=== PATIENT | female | born 1990 | race African-American/Black ===

== ENCOUNTER 2016-08-06 04:40 | Emergency (ER) | payer SELFPAY ==
[~2016-08-06] VITALS: Ht 154.9 cm; Wt 72.6 kg
[~2016-08-06 04:40] MED LIST: BENZ100C PO; CEPH-264 PO; NAPR250T2 PO; PRED20TA PO
[2016-08-06 05:00] VITALS: BP 135/84
--- NOTE | 2016-08-06 05:08 | PHYS DOC ---
Past Medical History Past Medical History: No Pertinent History Past Surgical History: No Surgical History Alcohol Use: None Drug Use: None Adult General Chief Complaint Chief Complaint: HEADACHE HPI HPI Patient is a 25 year old female who presents with left sided headache above and below eye, constant, gradually worsening, pressure/achy; associated with rhinorrhea, nasal congestion, and sneezing. States he has seasonal allergies and is currently taking an antihistamine without complete relief in symptoms. She denies fever or chills, vision changes, eye pain, ear pain, sore throat, cough, nausea or vomiting, dizziness, numbness, tingling, weakness. Review of Systems Review of Systems Constitutional: Denies fever or chills [] Eyes: Denies change in visual acuity, redness, or eye pain [] HENT: Denies sore throat [] Respiratory: Denies cough or shortness of breath [] Cardiovascular: No additional information not addressed in HPI [] GI: Denies abdominal pain, nausea, vomiting, bloody stools or diarrhea [] : Denies dysuria or hematuria [] Musculoskeletal: Denies back pain or joint pain [] Integument: Denies rash or skin lesions [] Neurologic: Denies focal weakness or sensory changes [] Endocrine: Denies polyuria or polydipsia [] Allergies Allergies Allergies Coded Allergies Type Severity Reaction Last Updated Verified hydrocodone Allergy Intermediate 04/14/14 No Physical Exam Physical Exam Constitutional: Well developed, well nourished, no acute distress, non-toxic appearance. [] HENT: Normocephalic, atraumatic, bilateral TMs normal, oropharynx moist, no oral exudates, nose normal. Has left frontal and maxillary sinus [] Eyes: PERRLA, EOMI, conjunctiva normal, no discharge. [] Neck: Normal range of motion, no tenderness, supple. [] Cardiovascular:Heart rate regular rhythm [] Lungs & Thorax: Bilateral breath sounds clear to auscultation [] Abdomen: Bowel sounds normal, soft, no tenderness. [] Skin: Warm, dry, no erythema, no rash. [] Back: Normal range of motion. [] Extremities: No tenderness, ROM intact. [] Neurologic: Alert and oriented X 3, normal motor function, normal sensory function, no focal deficits noted, cranial nerves II through XII intact. [] Psychologic: Affect normal, judgement normal, mood normal. [] Course & Med Decision Making Course & Med Decision Making Discussed symptomatic management. Return precautions given. She understands and agrees with plan. Dragon Disclaimer Mahad Disclaimer This electronic medical record was generated, in whole or in part, using a voice recognition dictation system. Departure Departure Impression: Primary Impression: Sinus headache Disposition: HOME, SELF-CARE Condition: STABLE Referrals: NO PCP (PCP) Patient Instructions: Sinus Headache, [id number] Additional Instructions: Use Flonase to help with nasal congestion and sinus headache. Use nasal saline rinses (such as Krysten pot) to help with congestion well. Take Tylenol or ibuprofen as needed for pain. Follow-up with your primary care doctor within one week. Return for any concerns. Mary AVENDAÑO MD August 06, 2016 05:08
== END 2016-08-06 05:12 | disposition home or self-care (01) ==
LOC: ER 04:40
DX: R51 Headache (principal); J34.89 Other specified disorders of nose and nasal sinuses; R09.81 Nasal congestion; R06.7 Sneezing; Z88.5 Allergy status to narcotic agent
CPT/HCPCS: 99281

== ENCOUNTER 2017-03-03 17:32 | Emergency (ER) | payer OTHER ==
[~2017-03-03] VITALS: Ht 154.9 cm; Wt 77.1 kg
[~2017-03-03 17:32] MED LIST changes: -NAPR250T2 PO; +NAPR250T6 PO
[2017-03-03] MEDS ORDERED: FLUT9.9S NS (18:25)
[2017-03-03] MEDS ORDERED: AMOX1TAB11 PO (18:25)
--- NOTE | 2017-03-03 18:25 | PHYS DOC ---
Past Medical History Past Medical History: No Pertinent History Past Surgical History: No Surgical History Alcohol Use: None Drug Use: None Adult General Chief Complaint Chief Complaint: EARACHE/EAR PAIN [facility] HPI Patient is a 26 year old E male presents to the emergency department with a one -month history of cough with bilateral ear discomfort. States she's really taking foods and fluids. She has only vomited after coughing. No fever. Review of Systems Review of Systems Constitutional: Denies fever or chills [] Eyes: Denies change in visual acuity, redness, or eye pain [] HENT: Nasal congestion, sore throat, sinus pain Respiratory: Cough without shortness of breath Cardiovascular: No additional information not addressed in HPI [] GI: Denies abdominal pain, nausea, vomiting, bloody stools or diarrhea [] : Denies dysuria or hematuria [] Musculoskeletal: Denies back pain or joint pain [] Integument: Denies rash or skin lesions [] Neurologic: Denies headache, focal weakness or sensory changes [] Endocrine: Denies polyuria or polydipsia [] All other systems were reviewed and found to be within normal limits, except as documented in this note. Allergies Allergies Allergies Coded Allergies Type Severity Reaction Last Updated Verified hydrocodone Allergy Intermediate 04/14/14 No Physical Exam Physical Exam Constitutional: Well developed, well nourished, no acute distress, non-toxic appearance. [] HENT: Normocephalic, atraumatic, bilateral tympanic membranes pearly valdez with effusion, clear fluid. Anterior turbinates swollen, rhinorrhea, maxillary sinus tenderness, posterior pharynx injected Eyes: PERRLA, EOMI, conjunctiva normal, no discharge. [] Neck: Normal range of motion, no tenderness, supple, no stridor. [] Cardiovascular:Heart rate regular rhythm, no murmur [] Lungs & Thorax: Bilateral breath sounds clear to auscultation [] Abdomen: Bowel sounds normal, soft, no tenderness, no masses, no pulsatile masses. [] Skin: Warm, dry, no erythema, no rash. [] Back: No tenderness, no CVA tenderness. [] Extremities: No tenderness, no cyanosis, no clubbing, ROM intact, no edema. [] Neurologic: Alert and oriented X 3, normal motor function, normal sensory function, no focal deficits noted. [] Psychologic: Affect normal, judgement normal, mood normal. [] EKG EKG [] Radiology/Procedures Radiology/Procedures [] Course & Med Decision Making Course & Med Decision Making Pertinent Labs and Imaging studies reviewed. (See chart for details) [] Dragon Disclaimer Dragon Disclaimer This electronic medical record was generated, in whole or in part, using a voice recognition dictation system. Departure Departure Impression: Primary Impression: Sinusitis Disposition: HOME, SELF-CARE Condition: STABLE Referrals: NO PCP (PCP) [facility] Patient Instructions: Sinusitis Scripts Fluticasone Propionate (Flonase Allergy Relief) 9.9 Ml [place].susp 2 SPRAYS NS DAILY for 10 Days, #1 BOTTLE Prov: JULIANNA HAMILTON APRN 03/03/17 Amoxicillin/Potassium Clav (AMOX TR-K CLV 875-125 MG TAB) 1 Each Tablet 1 TAB PO BID, #20 TAB Prov: JULIANNA HAMILTON APRN 03/03/17 Problem Qualifiers Primary Impression: Sinusitis Sinusitis location: maxillary Chronicity: acute Recurrence: non-recurrent Qualified Codes: J01.00 - Acute maxillary sinusitis, unspecified JULIANNA HAMILTON APRN Mar 03, 2017 18:25
[2017-03-03 18:42] VITALS: BP 128/79
== END 2017-03-03 18:49 | disposition home or self-care (01) ==
LOC: ER 17:32
DX: J01.00 Acute maxillary sinusitis, unspecified (principal); Z88.5 Allergy status to narcotic agent
CPT/HCPCS: 99283

== ENCOUNTER 2017-03-13 19:25 | Emergency (ER) | payer OTHER ==
[~2017-03-13] VITALS: Ht 157.5 cm; Wt 77.1 kg
[~2017-03-13 19:25] MED LIST changes: +AMOX1TAB11 PO; +FLUT9.9S NS
[2017-03-13 19:36] VITALS: BP 124/89
[2017-03-13] MEDS ORDERED: METH4TAB2 PO (19:50)
[2017-03-13] MEDS ORDERED: CARB15DR58 OT (19:50)
--- NOTE | 2017-03-13 19:52 | PHYS DOC ---
Past Medical History Past Medical History: No Pertinent History Past Surgical History: No Surgical History Alcohol Use: None Drug Use: None Adult General Chief Complaint Chief Complaint: EARACHE/EAR PAIN HPI HPI Patient is a 26 year old female with a history of cerumen impaction presents the ED complaining of ear pain 3 days. Patient states she is currently being treated with Augmentin for a sinus infection from her last visit. Patient is complaining of ear pain and feeling of fullness. Describes the pain as sharp. Rates the pain as 4 out of 10. States her congestion and cough have improved. Denies body aches, sore throat, chest pain, shortness of breath, fever, nausea/ vomiting, abdominal pain. Review of Systems Review of Systems Constitutional: Denies fever or chills [] Eyes: Denies change in visual acuity, redness, or eye pain [] HENT: Complains of nasal congestion and ear pain. Denies sore throat [] Respiratory: Denies shortness of breath [] Cardiovascular: No additional information not addressed in HPI [] GI: Denies abdominal pain, nausea, vomiting, bloody stools or diarrhea [] : Denies dysuria or hematuria [] Musculoskeletal: Denies back pain or joint pain [] Integument: Denies rash or skin lesions [] Neurologic: Denies headache, focal weakness or sensory changes [] Endocrine: Denies polyuria or polydipsia [] All other systems were reviewed and found to be within normal limits, except as documented in this note. Allergies Allergies Allergies Coded Allergies Type Severity Reaction Last Updated Verified hydrocodone Allergy Intermediate 04/14/14 No Physical Exam Physical Exam Constitutional: Well developed, well nourished, no acute distress, non-toxic appearance. [] HENT: Normocephalic, atraumatic, bilateral external ears normal, BILATERAL CERUMEN IMPACTION. oropharynx moist, no oral exudates, nose normal. [] Eyes: PERRLA, EOMI, conjunctiva normal, no discharge. [] Neck: Normal range of motion, no tenderness, supple, no stridor. [] Cardiovascular:Heart rate regular rhythm, no murmur [] Lungs & Thorax: Bilateral breath sounds clear to auscultation [] Skin: Warm, dry, no erythema, no rash. [] Neurologic: Alert and oriented X 3, normal motor function, normal sensory function, no focal deficits noted. [] Psychologic: Affect normal, judgement normal, mood normal. [] Current Patient Data Vital Signs Vital Signs Date Time Temp Pulse Resp B/P (MAP) Pulse Ox O2 Delivery O2 Flow Rate FiO2 03/13/17 19:36 98.4 109 20 97 Room Air 98.4 EKG EKG [] Radiology/Procedures Radiology/Procedures [] Course & Med Decision Making Course & Med Decision Making Pertinent Labs and Imaging studies reviewed. (See chart for details) []Will treat with Debrox and Medrol Dosepak outpatient. Discussed over-the- counter symptomatic treatment. Discussed follow-up with ENT. Provided contact information/education. Discussed reasons to return to the ED. Patient understands and agrees with plan. Dragon Disclaimer Dragon Disclaimer This electronic medical record was generated, in whole or in part, using a voice recognition dictation system. Departure Departure Impression: Primary Impression: Cerumen impaction Additional Impression: Viral URI Disposition: HOME, SELF-CARE Condition: IMPROVED Referrals: NO PCP (PCP) GUILLERMINA DAN MD Patient Instructions: Cerumen Impaction, Upper Respiratory Infection, Adult Scripts Methylprednisolone (MEDROL) 4 Mg Tab.ds.pk 1 PKG PO UD, #1 PKG Prov: LAVERNE VAZQUEZ 03/13/17 Carbamide Peroxide (CARBAMIDE PEROXIDE) 15 Ml Drops 15 ML OT BID for 4 Days, #5 DROP 5-10 DROPS IN EAR BID Prov: LAVRENE VAZQUEZ 03/13/17 Problem Qualifiers LAVERNE VAZQUEZ Mar 13, 2017 19:52
== END 2017-03-13 20:00 | disposition home or self-care (01) ==
LOC: ER 19:25
DX: H61.23 Impacted cerumen, bilateral (principal); J06.9 Acute upper respiratory infection, unspecified; B97.89 Other viral agents as the cause of diseases classified elsewhere; Z88.5 Allergy status to narcotic agent
CPT/HCPCS: 99283

== ENCOUNTER 2017-10-09 08:13 | Emergency (ER) | payer SELFPAY, OTHER ==
[2017-10-09 09:07] LABS: BILIRUBIN,URINE NEGATIVE (NEG); CLARITY,URINE CLOUDY; COLOR,URINE YELLOW; GLUCOSE,URINE NEGATIVE (NEG); NITRITE,URINE NEGATIVE (NEG); PROTEIN,URINE NEGATIVE (NEG-TRACE); UROBILINOGEN,URINE 0.2 mg/dL (0.2 mg/dL)
[2017-10-09 09:13] LABS: AMORPHOUS SEDIMENT,UR PRESENT /HPF; BACTERIA,URINE 0 /HPF (0-FEW); RBC,URINE 0 /HPF (0-2); WBC,URINE 0 /HPF (0-4)
[2017-10-10 16:17] LABS: CHLAMYDIA PROBE Negative (Negative); GC PROBE Negative (Negative)
== END 2017-10-09 09:59 | disposition home or self-care (01) ==
LOC: ER 09:59
DX: N89.8 Other specified noninflammatory disorders of vagina (principal); Z88.5 Allergy status to narcotic agent
CPT/HCPCS: 81001; 87491; 87591; 99284; Q0111

== ENCOUNTER 2018-02-25 01:29 | Emergency (ER) | payer OTHER ==
[~2018-02-25] VITALS: Ht 157.5 cm; Wt 81.6 kg
[~2018-02-25 01:29] MED LIST changes: +CARB15DR58 OT; +METH4TAB2 PO
[2018-02-25 02:09] LABS: BASO # 0.1 x10^3/uL (0.0-0.2); BASO % 1 % (0-3); EOS % 0 % (0-3); HEMATOCRIT 38.6 % (36.0-47.0); HEMOGLOBIN 13.5 g/dL (12.0-15.5); LYMPH # 2.5 x10^3/uL (1.0-4.8); LYMPH % 15 % (24-48); MEAN CORPUSCULAR HEMOGLOBIN 32 pg (25-35); MEAN CORPUSCULAR HGB CONC 35 g/dL (31-37); MEAN CORPUSCULAR VOLUME 91 fL (79-100); MONO # 0.6 x10^3/uL (0.0-1.1); MONO % 4 % (0-9); NEUT # 13.6 x10^3uL (1.8-7.7); NEUT % 81 % (31-73); PLATELET COUNT 311 x10^3/uL (140-400); RED BLOOD COUNT 4.26 x10^6/uL (3.50-5.40); RED CELL DISTRIBUTION WIDTH 14.1 % (11.5-14.5); WHITE BLOOD COUNT 16.8 x10^3/uL (4.0-11.0)
[2018-02-25] MEDS ORDERED: IV NORMAL SALINE 1000ML BAG 1,000 ML IV ONE (02:15)
[2018-02-25] MEDS ORDERED: ONDANSETRON PF 4 MG/2 ML VIAL. IV ONE (02:15)
[2018-02-25 02:28] LABS: CALCIUM 9.8 mg/dL (8.5-10.1); CREATININE 0.8 mg/dL (0.6-1.0); GFR 103.3; POTASSIUM 4.2 mmol/L (3.5-5.1)
[2018-02-25 02:34] LABS: ALBUMIN 4.5 g/dL (3.4-5.0); TOTAL BILIRUBIN 0.4 mg/dL (0.2-1.0)
[2018-02-25 03:12] LABS: BILIRUBIN,URINE NEGATIVE (NEG); CLARITY,URINE CLEAR; COLOR,URINE YELLOW; NITRITE,URINE NEGATIVE (NEG); PROTEIN,URINE 100 mg/dL (NEG-TRACE); UROBILINOGEN,URINE 0.2 mg/dL (0.2 mg/dL)
[2018-02-25 03:42] LABS: BACTERIA,URINE MODERATE /HPF (0-FEW); RBC,URINE OCC /HPF (0-2); SQUAMOUS EPITHELIAL CELL,UR MANY /LPF
[2018-02-25 04:00] VITALS: BP 130/70
[2018-02-25] MEDS ORDERED: PROC10TA57 PO (04:00)
--- NOTE | 2018-02-25 04:37 | PHYS DOC ---
Past Medical History Past Medical History: No Pertinent History, Other Additional Past Medical Histor: ear/sinus infection Past Surgical History: No Surgical History Alcohol Use: None Drug Use: None Adult General Chief Complaint Chief Complaint: VOMITING IN HPI HPI Patient is a 27 year old f p/w cc of nausea and vomiting. pt has no fever has some crampy abdo pain with vomiting upper abdo area. no lower quadrant pain. no dysuria, no vaginal bleeding. Review of Systems Review of Systems Constitutional: Denies fever or chills [] Eyes: Denies change in visual acuity, redness, or eye pain [] Cardiovascular: No additional information not addressed in HPI [] Musculoskeletal: Denies back pain or joint pain [] Integument: Denies rash or skin lesions [] Neurologic: Denies headache, focal weakness or sensory changes [] All other systems were reviewed and found to be within normal limits, except as documented in this note. Current Medications Current Medications Current Medications Medications (Trade) Dose Ordered Sig/Carla Start Time Stop Time Status Last Admin Dose Admin Ondansetron HCl (Zofran) 4 mg 1X ONCE 02/25/18 02:15 02/25/18 02:16 DC 02/25/18 02:07 4 MG Sodium Chloride 1,000 ml @ 1,000 mls/hr 1X ONCE 02/25/18 02:15 02/25/18 03:14 DC 02/25/18 02:09 1,000 MLS/HR Allergies Allergies Allergies Coded Allergies Type Severity Reaction Last Updated Verified hydrocodone Allergy Intermediate 04/14/14 No Physical Exam Physical Exam Constitutional: Well developed, well nourished, no acute distress, non-toxic appearance. [] HENT: Normocephalic, atraumatic, bilateral external ears normal, oropharynx dry , no oral exudates, nose normal. [] Eyes: PERRLA, EOMI, conjunctiva normal, no discharge. [] Neck: Normal range of motion, no tenderness, supple, no stridor. [] Cardiovascular:Heart rate regular rhythm, no murmur [] Lungs & Thorax: Bilateral breath sounds clear to auscultation [] Abdomen: Bowel sounds normal, soft, no tenderness, no masses, no pulsatile masses. [] Skin: Warm, dry, no erythema, no rash. [] Back: No tenderness, no CVA tenderness. [] Extremities: No tenderness, no cyanosis, no clubbing, ROM intact, no edema. [] Neurologic: Alert and oriented X 3, normal motor function, normal sensory function, no focal deficits noted. [] Psychologic: Affect normal, judgement normal, mood normal. [] Current Patient Data Vital Signs Vital Signs Date Time Temp Pulse Resp B/P (MAP) Pulse Ox O2 Delivery O2 Flow Rate FiO2 02/25/18 04:00 64 20 130/70 (90) 100 Room Air 02/25/18 01:50 98.7 98.7 Lab Values Laboratory Tests Test 02/25/18 02:00 02/25/18 03:01 02/25/18 03:05 White Blood Count 16.8 x10^3/uL (4.0-11.0) H Red Blood Count 4.26 x10^6/uL (3.50-5.40) Hemoglobin 13.5 g/dL (12.0-15.5) Hematocrit 38.6 % (36.0-47.0) Mean Corpuscular Volume 91 fL (79-100) Mean Corpuscular Hemoglobin 32 pg (25-35) Mean Corpuscular Hemoglobin Concent 35 g/dL (31-37) Red Cell Distribution Width 14.1 % (11.5-14.5) Platelet Count 311 x10^3/uL (140-400) Neutrophils (%) (Auto) 81 % (31-73) H Lymphocytes (%) (Auto) 15 % (24-48) L Monocytes (%) (Auto) 4 % (0-9) Eosinophils (%) (Auto) 0 % (0-3) Basophils (%) (Auto) 1 % (0-3) Neutrophils # (Auto) 13.6 x10^3uL (1.8-7.7) H Lymphocytes # (Auto) 2.5 x10^3/uL (1.0-4.8) Monocytes # (Auto) 0.6 x10^3/uL (0.0-1.1) Eosinophils # (Auto) 0.0 x10^3/uL (0.0-0.7) Basophils # (Auto) 0.1 x10^3/uL (0.0-0.2) Platelet Estimate Pending Sodium Level 140 mmol/L (136-145) Potassium Level 4.2 mmol/L (3.5-5.1) Chloride Level 102 mmol/L (98-107) Carbon Dioxide Level 23 mmol/L (21-32) Anion Gap 15 (6-14) H Blood Urea Nitrogen 12 mg/dL (7-20) Creatinine 0.8 mg/dL (0.6-1.0) Estimated GFR (Cockcroft-Gault) 103.3 BUN/Creatinine Ratio 15 (6-20) Glucose Level 149 mg/dL (70-99) H Calcium Level 9.8 mg/dL (8.5-10.1) Magnesium Level 2.0 mg/dL (1.8-2.4) Total Bilirubin 0.4 mg/dL (0.2-1.0) Aspartate Amino Transferase (AST) 18 U/L (15-37) Alanine Aminotransferase (ALT) 26 U/L (14-59) Alkaline Phosphatase 59 U/L (46-116) Total Protein 9.0 g/dL (6.4-8.2) H Albumin 4.5 g/dL (3.4-5.0) Albumin/Globulin Ratio 1.0 (1.0-1.7) Lipase 95 U/L (73-393) Urine Collection Type Unknown Urine Color Yellow Urine Clarity Clear Urine pH 7.0 Urine Specific [place] >=1.030 Urine Protein 100 mg/dL (NEG-TRACE) Urine Glucose (UA) Negative mg/dL (NEG) Urine Ketones (Stick) >=80 mg/dL (NEG) Urine Blood Negative (NEG) Urine Nitrite Negative (NEG) Urine Bilirubin Negative (NEG) Urine Urobilinogen Dipstick 0.2 mg/dL (0.2 mg/dL) Urine Leukocyte Esterase Trace (NEG) Urine RBC Occ /HPF (0-2) Urine WBC 5-10 /HPF (0-4) Urine Squamous Epithelial Cells Many /LPF Urine Bacteria Moderate /HPF (0-FEW) Urine Mucus Marked /LPF POC Urine HCG, Qualitative Hcg positive (Negative) Laboratory Tests 02/25/18 02:00 Laboratory Tests 02/25/18 02:00 EKG EKG [] Radiology/Procedures Radiology/Procedures [] Course & Med Decision Making Course & Med Decision Making Pertinent Labs and Imaging studies reviewed. (See chart for details) noted wbc, there is no right lower quadrant tenderness on reevaluation she is feeling much better this was likely related to The vomiting. I did give her explicit instructions to come back to the emergency room should she have any migrating pain or fever over the next 12-24 hours otherwise take antiemetics expect her symptoms to slowly improve. noted the u/a likely contaminated no urinary symptoms, urine culture in process. Dragon Disclaimer Dragon Disclaimer This electronic medical record was generated, in whole or in part, using a voice recognition dictation system. Departure Departure Impression: Primary Impression: Hyperemesis gravidarum Disposition: 01 HOME, SELF-CARE Condition: STABLE Patient Instructions: Hyperemesis Gravidarum Scripts Prochlorperazine Maleate (Compazine) 10 Mg Tablet 10 MG PO BID PRN for NAUSEA/VOMITING, #30 TAB Prov: TONY DELGADO MD 02/25/18 TONY DELGADO MD Feb 25, 2018 04:37
[2018-02-25 05:21] LABS: % BASOS 1 % (0-3); % LYMPHS 22 % (24-48); % MONOS 3 % (0-10); % SEGS 74 % (35-66); PLT ESTIMATE ADEQUATE (ADEQUATE)
== END 2018-02-25 04:12 | disposition home or self-care (01) ==
LOC: ER 01:29
DX: O21.0 Mild hyperemesis gravidarum (principal); R10.10 Upper abdominal pain, unspecified; Z88.5 Allergy status to narcotic agent; Z3A.01 Less than 8 weeks gestation of pregnancy
CPT/HCPCS: 36415; 80053; 81001; 81025; 83690; 83735; 85007; 85025; 87086; 96361; 96374; 99283; J2405; J7030

== ENCOUNTER 2018-07-24 22:47 | Emergency (ER) | payer OTHER ==
[~2018-07-24] VITALS: Ht 154.9 cm; Wt 94.8 kg
[~2018-07-24 22:47] MED LIST changes: +PROC10TA57 PO
[2018-07-24] MEDS ORDERED: ACETAMINOPHEN 325 MG TABLET. PO ONE (23:15)
--- NOTE | 2018-07-24 23:21 | NUR ---
At 2300 called to ER to assess heart tones. heart tones 145-160, no palpable contractions, pt denies any abdominal pain. Denies any vaginal bleeding or leaking of fluids.
[2018-07-25] MEDS ORDERED: FAMOTIDINE 20 MG TABLET. PO ONE (00:30)
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
[2018-07-25 00:59] VITALS: BP 94/70
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
== END 2018-07-25 01:02 | disposition home or self-care (01) ==
LOC: ER 22:47
DX: O9A.213 Injury, poisoning and certain other consequences of external causes complicating pregnancy, third trimester (principal); M54.5 Low back pain; Z88.5 Allergy status to narcotic agent; Z3A.29 29 weeks gestation of pregnancy; V49.9XXA Car occupant (driver) (passenger) injured in unspecified traffic accident, initial encounter; Y93.89 Activity, other specified; Y92.410 Unspecified street and highway as the place of occurrence of the external cause; Y99.8 Other external cause status
CPT/HCPCS: 76815; 99285

== ENCOUNTER 2018-07-25 00:41 | Observation (INO) | payer OTHER ==
[2018-07-24 22:52] VITALS: BP 138/76
[2018-07-25 01:25] LABS: BILIRUBIN,URINE NEGATIVE (NEG); CLARITY,URINE CLOUDY; COLOR,URINE YELLOW; NITRITE,URINE NEGATIVE (NEG); PH,URINE 6.5; PROTEIN,URINE NEGATIVE (NEG-TRACE); UROBILINOGEN,URINE 0.2 mg/dL (0.2 mg/dL)
[2018-07-25 01:32] LABS: BARBITURATES NEG (NEG); BENZODIAZEPINES NEG (NEG); CANNABINOIDS NEG (NEG); COCAINE NEG (NEG); METHADONE NEG (NEG); OPIATES NEG (NEG); PHENCYCLIDINE NEG (NEG)
[2018-07-25 01:35] LABS: AMPHETAMINE/METHAMPHETAMINE NEG (NEG)
[2018-07-25 01:37] LABS: BACTERIA,URINE FEW /HPF (0-FEW); RBC,URINE 0 /HPF (0-2); SQUAMOUS EPITHELIAL CELL,UR MANY /LPF; WBC,URINE OCC /HPF (0-4)
== END 2018-07-25 02:01 | disposition home or self-care (01) ==
LOC: 3 SO LND 00:41
PROVIDERS: ADMIT Obstetrics & Gynecology; ATTEND Obstetrics & Gynecology
DX: O26.893 Other specified pregnancy related conditions, third trimester (principal); V89.2XXA Person injured in unspecified motor-vehicle accident, traffic, initial encounter; Y93.89 Activity, other specified; Y92.89 Other specified places as the place of occurrence of the external cause; Y99.8 Other external cause status; Z3A.28 28 weeks gestation of pregnancy
CPT/HCPCS: 80307; 81001; G0379

== ENCOUNTER 2020-06-04 18:19 | Emergency (ER) | payer MEDICAID, OTHER ==
[~2020-06-04] VITALS: Ht 154.9 cm; Wt 81.2 kg
[~2020-06-04 18:19] MED LIST changes: +NAPR-699 PO; -NAPR250T6 PO
[2020-06-04 19:40] VITALS: BP 143/85
[2020-06-04] MEDS ORDERED: DEXAMETHASONE 4 MG TABLET PO SCH (20:00)
[2020-06-04] MEDS ORDERED: TRAM50TA PO (20:00)
[2020-06-04] MEDS ORDERED: NEOM10DR32 EACH EAR (20:00)
--- NOTE | 2020-06-04 20:01 | PHYS DOC ---
Past Medical History Past Medical History: No Pertinent History, Other Additional Past Medical Histor: ear/sinus infection (RORY TIWARI [employer]) Past Surgical History: No Surgical History (RORY TIWARI [employer]) Smoking Status: Never Smoker Alcohol Use: None Drug Use: None (RORY TIWARI APRN) General Adult EDM: Chief Complaint: EARACHE/EAR PAIN HPI: HPI: Patient is a 29 year old female who presents with 3 days of bilateral ear pain and feeling off balance. She denies nasal congestion, fever, cough, chest pain, shortness of air, abdominal pain, nausea, vomiting, diarrhea, focal weakness. Patient states the pain is unbearable. She rates her pain a 10 out of 10 and states it is burning and throbbing. Patient states she is been taking ibuprofen at home that relief. (RORY TIWARI [employer]) Review of Systems: Review of Systems: Constitutional: Denies fever or chills. [] Eyes: Denies change in visual acuity. [] HENT: Denies nasal congestion or sore throat. +Bilateral ear pain [] Respiratory: Denies cough or shortness of breath. [] Cardiovascular: Denies chest pain or edema. [] GI: Denies abdominal pain, nausea, vomiting, bloody stools or diarrhea. [] : Denies dysuria. [] Musculoskeletal: Denies back pain or joint pain. [] Integument: Denies rash. [] Neurologic: Denies headache, focal weakness or sensory changes. + Feeling off balance [] Endocrine: Denies polyuria or polydipsia. [] Lymphatic: Denies swollen glands. [] Psychiatric: Denies depression or anxiety. [] (RORY TIWARI [employer]) Heart Score: Risk Factors: Risk Factors: DM, Current or recent (<one month) smoker, HTN, HLP, family history of CAD, obesity. Risk Scores: Score 0 - 3: 2.5% MACE over next 6 weeks - Discharge Home Score 4 - 6: 20.3% MACE over next 6 weeks - Admit for Clinical Observation Score 7 - 10: 72.7% MACE over next 6 weeks - Early Invasive Strategies (RORY TIWARI [employer]) Allergies: Allergies: Allergies Coded Allergies Type Severity Reaction Last Updated Verified hydrocodone Allergy Intermediate 07/25/18 Yes (RORY TIWARI APRN) Physical Exam: PE: Constitutional: Well developed, well nourished, no acute distress, non-toxic appearance. [] HENT: Normocephalic, atraumatic, bilateral external ears normal, oropharynx moist, no oral exudates, nose normal. Bilateral otitis externa with redness, tenderness and swelling. [] Eyes: PERRLA, EOMI, conjunctiva normal, no discharge. [] Neck: Normal range of motion, no tenderness, supple, no stridor. [] Cardiovascular:Heart rate regular rhythm, no murmur [] Lungs & Thorax: Bilateral breath sounds clear to auscultation [] Abdomen: Bowel sounds normal, soft, no tenderness, no masses, no pulsatile masses. [] Skin: Warm, dry, no erythema, no rash. [] Back: No tenderness, no CVA tenderness. [] Extremities: No tenderness, no cyanosis, no clubbing, ROM intact, no edema. [] Neurologic: Alert and oriented X 3, normal motor function, normal sensory function, no focal deficits noted. [] Psychologic: Affect normal, judgement normal, mood normal. [] (RORY TIWARI APRN) Current Patient Data: Vital Signs: Vital Signs Date Time Temp Pulse Resp B/P (MAP) Pulse Ox O2 Delivery O2 Flow Rate FiO2 06/04/20 19:40 98.9 108 18 143/85 (104) 99 Room Air 98.9 (RORY TIWARI APRN) EKG: EKG: [] (RORY TIWARI APRN) Radiology/Procedures: Radiology/Procedures: [] (RORY TIWARI APRN) Course & Med Decision Making: Course & Med Decision Making Pertinent Labs and Imaging studies reviewed. (See chart for details) See HPI. Alert and oriented x4. Ambulatory with a steady gait. Speaks in full clear sentences. Bilateral ear canals are swollen red and tender. Skin pink warm and dry. Afebrile. Patient has otitis externa. She placed on biotics. I will give her a prescription for some pain medicine and I will give her a dose of dexamethasone here to help with swelling. [] (RORY TIWARI APRN) Course & Med Decision Making Patient seen and evaluated by ALONA independently. I was available for consultation. (MARI SHRESTHA DO) Dragon Disclaimer: Dragon Disclaimer: This electronic medical record was generated, in whole or in part, using a voice recognition dictation system. (RORY TIWARI APRN) Departure Departure Impression: Primary Impression: Otitis externa Qualified Codes: H60.393 - Other infective otitis externa, bilateral Disposition: 01 DC HOME SELF CARE/HOMELESS Condition: STABLE Referrals: UNKNOWN PCP NAME (PCP) GUILLERMINA DAN MD Patient Instructions: Otitis Externa Additional Instructions: Follow-up with an ENT that I have referred you to or with your primary care doctor if needed. Put cotton balls in your ears before you get into the shower to keep water out. Use antibiotic as prescribed. Scripts Tramadol Hcl (TRAMADOL HCL) 50 Mg Tablet 50 MG PO Q6HRS PRN for PAIN, #15 TAB Prov: RORY TIWARI APRN 06/04/20 Neomycin/Polymyxin B Sulf/Hc ([id number] EAR SUSP) 10 Ml Drops.susp 4 DROP EACH EAR TID for 5 Days, #10 ML 0 Refills Prov: RORY TIWARI APRN 06/04/20 RORY TIWARI APRN Jun 04, 2020 20:00 MARI SHRESTHA DO Jun 04, 2020 22:37
== END 2020-06-04 20:30 | disposition home or self-care (01) ==
LOC: ER 18:19
DX: H60.393 Other infective otitis externa, bilateral (principal); Z88.5 Allergy status to narcotic agent
CPT/HCPCS: 99283

== ENCOUNTER 2021-05-17 21:29 | Observation (INO) | payer OTHER, MEDICAID ==
[~2021-05-17] VITALS: Ht 162.6 cm; Wt 73.0 kg
[~2021-05-17 21:29] MED LIST changes: +NEOM10DR32 EACH EAR; +TRAM50TA PO
--- NOTE | 2021-05-18 04:03 | ED.ADGEN ---
Past Medical History Past Medical History: No Pertinent History, Other Additional Past Medical Histor: ear/sinus infection Past Surgical History: No Surgical History Smoking Status: Never Smoker Alcohol Use: None Drug Use: None General Adult EDM: Chief Complaint: URINARY RETENTION HPI: HPI: Patient is a 30 year old female coming in for urinary retention. Patient was seen at [facility] yesterday and had her bladder drained around 1400, about 16 hours prior to my evaluation. Patient states she has not been able to have any urine output or even dribbling. States she has had a little bit of pelvic discomfort and burning. Denies any hematuria. Patient states that she was seen at [facility] 1 week ago and given methotrexate for an elective at [facility] to [facility]. Patient states she had had bleeding that is now subsided. Denies any vaginal discharge. Denies any other new medications. Has never had problems with urinary retention or her kidneys in the past Review of Systems: Review of Systems: All other systems within normal limits except for as noted in the HPI Current Medications: Current Medications Medications (Trade) Dose Ordered Sig/Carla Start Time Stop Time Status Last Admin Dose Admin Info (CONTRAST GIVEN -- Rx MONITORING) 1 each PRN DAILY PRN 05/18/21 05:00 05/20/21 04:59 Iohexol (Omnipaque 300 Mg/ml) 75 ml 1X ONCE 05/18/21 05:30 05/18/21 05:31 DC 05/18/21 05:04 75 ML Allergies: Allergies: Allergies Coded Allergies Type Severity Reaction Last Updated Verified hydrocodone Allergy Intermediate 07/25/18 Yes Physical Exam: PE: Constitutional: Well developed, well nourished, no acute distress, non-toxic appearance. [] HENT: Normocephalic, atraumatic, bilateral external ears normal, nose normal. [] Eyes: PERRLA, conjunctiva normal, no discharge. [] Neck: No rigidity, supple, no stridor. [] Cardiovascular: Regular rate and rhythm, brisk cap refill [] Lungs & Thorax: Non labored symmetric respirations, no tachypnea or respiratory distress [] Abdomen: Soft, mild distention and suprapubic tenderness, 500+ mL on bladder scan Skin: Warm, dry, no erythema, no rash. [] Back: Unremarkable Extremities: No deformities, range of motion grossly intact, no lower extremity edema [] Neurologic: Alert and oriented X 3, no focal deficits noted. [] Psychologic: Affect normal, judgement normal, mood normal. [] Current Patient Data: Labs: Laboratory Tests Test 05/18/21 04:00 05/18/21 04:10 05/18/21 04:18 Urine Collection Type Unknown Urine Color Yellow Urine Clarity Clear Urine pH 6.5 (<5.0-8.0) Urine Specific [place] 1.025 (1.000-1.030) Urine Protein Negative mg/dL (NEG-TRACE) Urine Glucose (UA) Negative mg/dL (NEG) Urine Ketones (Stick) 40 mg/dL (NEG) Urine Blood Negative (NEG) Urine Nitrite Negative (NEG) Urine Bilirubin Negative (NEG) Urine Urobilinogen Dipstick 0.2 mg/dL (0.2 mg/dL) Urine Leukocyte Esterase Trace (NEG) Urine RBC 0 /HPF (0-2) Urine WBC 5-10 /HPF (0-4) Urine Squamous Epithelial Cells Many /LPF Urine Bacteria Few /HPF (0-FEW) Urine Mucus Mod /LPF White Blood Count 9.0 x10^3/uL (4.0-11.0) Red Blood Count 3.99 x10^6/uL (3.50-5.40) Hemoglobin 11.7 g/dL (12.0-15.5) L Hematocrit 35.4 % (36.0-47.0) L Mean Corpuscular Volume 89 fL (79-100) Mean Corpuscular Hemoglobin 29 pg (25-35) Mean Corpuscular Hemoglobin Concent 33 g/dL (31-37) Red Cell Distribution Width 15.1 % (11.5-14.5) H Platelet Count 256 x10^3/uL (140-400) Neutrophils (%) (Auto) 70 % (31-73) Lymphocytes (%) (Auto) 20 % (24-48) L Monocytes (%) (Auto) 9 % (0-9) Eosinophils (%) (Auto) 1 % (0-3) Basophils (%) (Auto) 0 % (0-3) Neutrophils # (Auto) 6.3 x10^3/uL (1.8-7.7) Lymphocytes # (Auto) 1.8 x10^3/uL (1.0-4.8) Monocytes # (Auto) 0.8 x10^3/uL (0.0-1.1) Eosinophils # (Auto) 0.1 x10^3/uL (0.0-0.7) Basophils # (Auto) 0.0 x10^3/uL (0.0-0.2) Maternal Serum HCG Beta Subunit 144 mIU/mL (0-5) H Sodium Level 136 mmol/L (136-145) Potassium Level 3.8 mmol/L (3.5-5.1) Chloride Level 102 mmol/L (98-107) Carbon Dioxide Level 20 mmol/L (21-32) L Anion Gap 14 (6-14) Blood Urea Nitrogen 10 mg/dL (7-20) Creatinine 0.7 mg/dL (0.6-1.0) Estimated GFR (Cockcroft-Gault) 118.1 BUN/Creatinine Ratio 14 (6-20) Glucose Level 92 mg/dL (70-99) Calcium Level 8.3 mg/dL (8.5-10.1) L Total Bilirubin 0.4 mg/dL (0.2-1.0) Aspartate Amino Transferase (AST) 15 U/L (15-37) Alanine Aminotransferase (ALT) 21 U/L (14-59) Alkaline Phosphatase 50 U/L (46-116) Total Protein 7.7 g/dL (6.4-8.2) Albumin 3.7 g/dL (3.4-5.0) Albumin/Globulin Ratio 0.9 (1.0-1.7) L POC Urine HCG, Qualitative Hcg positive (Negative) Laboratory Tests 05/18/21 04:10 Laboratory Tests 05/18/21 04:10 Vital Signs: Vital Signs Date Time Temp Pulse Resp B/P (MAP) Pulse Ox O2 Delivery O2 Flow Rate FiO2 05/18/21 03:39 98.1 76 16 119/72 (88) 100 Room Air 98.1 EKG: EKG: [] Heart Score: C/O Chest Pain: No Risk Factors: Risk Factors: DM, Current or recent (<one month) smoker, HTN, HLP, family history of CAD, obesity. Risk Scores: Score 0 - 3: 2.5% MACE over next 6 weeks - Discharge Home Score 4 - 6: 20.3% MACE over next 6 weeks - Admit for Clinical Observation Score 7 - 10: 72.7% MACE over next 6 weeks - Early Invasive Strategies Radiology/Procedures: Radiology/Procedures: [facility] [address] [place] [address] IMAGING REPORT Signed PATIENT: TRU BRITT ACCOUNT: [id number] : 1990 LOCATION: ER AGE: 30 SEX: F EXAM STATUS: REG ER ORD. PHYSICIAN: WENDY BENOIT MD REASON: urinary retention, s/p chemical abortionOMNI 300,75NL PROCEDURE: CT ABD PELV W/ IV CONTRST ONLY CT ABDOMEN+PELVIS W History: urinary retention, s/p chemical Comparison: None. Technique: After administration of intravenous contrast, helical CT of the abdomen and pelvis was performed from the lung bases through the ischial tuberosities. Coronal and sagittal reconstructions were obtained. 75 mL of Omnipaque 300 were used. One or more of the following dose reduction techniques were utilized: Automated exposure control (AEC), Adjustment of mA and/or kV according to patient size, Use of iterative reconstruction technique such as ASi R, CT scan done according to ALARA and image gently/image wisely Abdomen Findings: The visualized lung bases are clear. The liver, gallbladder, pancreas, spleen, and bilateral adrenal glands are nor mal. Symmetric renal enhancement. There is no focal renal mass. There is no hydronephrosis. The visualized loops of small bowel are normal. Large amount of stool in the rectum and distal sigmoid. Fluid in the colon proximal to this. No dilated small bowel Appendix is normal. There is no free fluid. There is no mesenteric or retroperitoneal adenopathy. The abdominal aorta is normal in caliber. Pelvis Findings: Urinary bladder is decompressed by Carmen catheter. Uterus is present. Mild pelvic free fluid. There is no pelvic or inguinal adenopathy. There is no acute bony abnormality. IMPRESSION: 1. Large amount of solid stool in the rectum and distal sigmoid which may represent constipation/fecal impaction. Fluid throughout the colon proximal to this, which can be seen with diarrhea. 2. Mild pelvic free fluid. Electronically signed by: Jeffery Parham MD (05/18/2021 5:28 AM) [facility] DICTATED and SIGNED BY: JEFFERY PARHAM MD DATE: 05/18/21 [id number] [] Course & Med Decision Making: Course & Med Decision Making Pertinent Labs and Imaging studies reviewed. (See chart for details) [] Dragon Disclaimer: Dragon Disclaimer: This electronic medical record was generated, in whole or in part, using a voice recognition dictation system. Departure Departure Impression: Primary Impression: Urinary retention Additional Impression: Fecal impaction in rectum Disposition: 09 ADMITTED INPATIENT Admitting Physician: HIMMarty Condition: STABLE Referrals: NO PCP (PCP) Problem Qualifiers WENDY BENOIT MD May 18, 2021 04:03
[2021-05-18 04:22] LABS: BASO % 0 % (0-3); EOS # 0.1 x10^3/uL (0.0-0.7); EOS % 1 % (0-3); HEMATOCRIT 35.4 % (36.0-47.0); HEMOGLOBIN 11.7 g/dL (12.0-15.5); LYMPH # 1.8 x10^3/uL (1.0-4.8); LYMPH % 20 % (24-48); MEAN CORPUSCULAR HEMOGLOBIN 29 pg (25-35); MEAN CORPUSCULAR HGB CONC 33 g/dL (31-37); MEAN CORPUSCULAR VOLUME 89 fL (79-100); MONO # 0.8 x10^3/uL (0.0-1.1); MONO % 9 % (0-9); NEUT # 6.3 x10^3/uL (1.8-7.7); NEUT % 70 % (31-73); PLATELET COUNT 256 x10^3/uL (140-400); RED BLOOD COUNT 3.99 x10^6/uL (3.50-5.40); RED CELL DISTRIBUTION WIDTH 15.1 % (11.5-14.5)
[2021-05-18 04:23] LABS: BILIRUBIN,URINE NEGATIVE (NEG); CLARITY,URINE CLEAR; COLOR,URINE YELLOW; NITRITE,URINE NEGATIVE (NEG); PH,URINE 6.5 (<5.0-8.0); PROTEIN,URINE NEGATIVE (NEG-TRACE); UROBILINOGEN,URINE 0.2 mg/dL (0.2 mg/dL)
[2021-05-18 04:31] LABS: BACTERIA,URINE FEW /HPF (0-FEW); RBC,URINE 0 /HPF (0-2)
[2021-05-18 04:37] LABS: CALCIUM 8.3 mg/dL (8.5-10.1); CREATININE 0.7 mg/dL (0.6-1.0); GFR 118.1; POTASSIUM 3.8 mmol/L (3.5-5.1)
[2021-05-18 04:43] LABS: ALBUMIN 3.7 g/dL (3.4-5.0); ALBUMIN/GLOBULIN RATIO 0.9 (1.0-1.7); TOTAL BILIRUBIN 0.4 mg/dL (0.2-1.0); TOTAL PROTEIN 7.7 g/dL (6.4-8.2)
[2021-05-18] MEDS ORDERED: CONTRAST GIVEN. MC PRN (05:00)
[2021-05-18] MEDS ORDERED: IOHEXOL 300 MG/ML 100ML VIAL. IV ONE (05:30)
--- NOTE | 2021-05-18 05:31 | RAD ---
CT ABDOMEN+PELVIS W History: urinary retention, s/p chemical Comparison: None. Technique: After administration of intravenous contrast, helical CT of the abdomen and pelvis was per formed from the lung bases through the ischial tuberosities. Coronal and sagittal reconstructions wer e obtained. 75 mL of Omnipaque 300 were used. One or more of the following dose reduction techniques were utilized: Automated exposure control (AEC), Adjustment of mA and/or kV according to patient size , Use of iterative reconstruction technique such as ASiR, CT scan done according to ALARA and image g ently/image wisely Abdomen Findings: The visualized lung bases are clear. The liver, gallbladder, pancreas, spleen, and bilateral adrenal glands are normal. Symmetric renal enhancement. There is no focal renal mass. There is no hydronephrosis. The visualized loops of small bowel are normal. Large amount of stool in the rectum and distal sigmoi d. Fluid in the colon proximal to this. No dilated small bowel Appendix is normal. There is no free fluid. There is no mesenteric or retroperitoneal adenopathy. The abdominal aorta is normal in caliber. Pelvis Findings: Urinary bladder is decompressed by Carmen catheter. Uterus is present. Mild pelvic free fluid. There i s no pelvic or inguinal adenopathy. There is no acute bony abnormality. IMPRESSION: 1. Large amount of solid stool in the rectum and distal sigmoid which may represent constipation/feca l impaction. Fluid throughout the colon proximal to this, which can be seen with diarrhea. 2. Mild pelvic free fluid. Electronically signed by: Moustapha Parham MD (05/18/2021 5:28 AM) [facility]
[2021-05-18] MEDS ORDERED: DOCUSATE SODIUM 283 MG/5 ML ENEMA. PR PRN (05:45)
[2021-05-18] MEDS ORDERED: ONDANSETRON PF 4 MG/2 ML VIAL. IVP PRN (05:45)
[2021-05-18] MEDS ORDERED: BISACODYL 10 MG SUPP.RECT. PR PRN ×2 (05:45→10:15)
[2021-05-18] MEDS ORDERED: ACETAMINOPHEN 325 MG TABLET. PO PRN (05:45)
[2021-05-18 07:00] VITALS: BP 125/70
--- NOTE | 2021-05-18 09:59 | NUR ---
SW following. Discussed with RN, pt from home, room air, regular diet. RN advised no SW needs at this time, awaiting further plan of care. SW will continue to follow.
[2021-05-18] MEDS ORDERED: BISA10SU4 PR (10:18)
[2021-05-18 11:00] VITALS: BP 138/86
[2021-05-18] MEDS ORDERED: PHENYLEPH/MINERAL OIL/PETROLAT RECTAL OINTMENT TUBE. RC PRN (11:00)
--- NOTE | 2021-05-18 11:11 | SSS ---
DATE OF SERVICE: 05/18/2021 ADMIT DATE: 05/18/2021 CHIEF COMPLAINT: Urinary retention. HISTORY OF PRESENT ILLNESS: The patient is a pleasant 30-year-old female who has been having issues with urinary retention. She apparently was seen at [facility]. They discovered 1400 mL urinary retention. She has some associated abdominal discomfort. She states she was seen at [facility] a week ago where she took methotrexate for an induced . She also complains of constipation. I discussed the case with ER physician. We admitted the patient. We are going to give her some suppositories and check a voiding trial and hopefully let her go this afternoon if she is doing better. PAST MEDICAL HISTORY: The above-mentioned induced a week ago with p.o. methotrexate, polypharmacy, arthritis, chronic pain, allergic rhinitis, constipation. ALLERGIES: HYDROCODONE. FAMILY HISTORY: Diabetes. SOCIAL HISTORY: She does not drink, smoke or take drugs. MEDICATIONS: She is on amoxicillin, Naprosyn, Ultram, benzonatate, Neosporin p.r.n., carbamide peroxide, Flonase, bisacodyl, Compazine, Medrol Dosepak and prednisone. REVIEW OF SYSTEMS: GENERAL: No history of weight change, weakness or fevers. SKIN: No bruising, hair changes or rashes. EYES: No blurred, double or loss of vision. NOSE AND THROAT: No history of nosebleeds, hoarseness or sore throat. HEART: No history of palpitations, chest pain or shortness of breath on exertion. LUNGS: Denies cough, hemoptysis, wheezing or shortness of breath. GASTROINTESTINAL: She complains of some constipation. GENITOURINARY: She complains of urinary retention. NEUROLOGIC: Denies history of numbness, tingling, tremor or weakness. PSYCHIATRIC: No history of panic, anxiety or depression. ENDOCRINE: No history of heat or cold intolerance, polyuria or polydipsia. EXTREMITIES: Denies muscle weakness, joint pain, pain on walking or stiffness. LABORATORY DATA: White count is 9, hemoglobin 11.7, platelets 256. Electrolytes are normal. Urinalysis shows a slight UTI with trace leukocyte esterase and 5-10 white cells. Beta hCG was 144. CT of the abdomen shows fecal impaction. ASSESSMENT AND PLAN: Fecal impaction with secondary urinary retention. I spoke with her nurse. We are going to give her Dulcolax suppository and see if once we get her to have a bowel movement, her urinary retention will resolve. Continue home meds. Deep venous thrombosis prophylaxis. Full code. Hope to discharge this afternoon. LEANNA/JOSÉ MIGUEL DR: LEANNA/dante TID: [id number]
[2021-05-18] MEDS: IBUPROFEN 400 MG TABLET. PO PRN (12:40)
[2021-05-18] MEDS: fentaNYL PF VIAL 100 MCG/2 ML VIAL IVP PRN ×2 (12:41→18:58)
[2021-05-18 15:00] VITALS: BP 141/95
--- NOTE | 2021-05-18 17:30 | NUR ---
BLADDER SCANNED PT HAS 106 ML OF URINE.
[2021-05-18 19:00] VITALS: BP 116/67
[2021-05-18 23:00] VITALS: BP 156/98
[2021-05-19 03:00] VITALS: BP 122/79
[2021-05-19 07:00] VITALS: BP 112/82
[2021-05-19] MEDS: IBUPROFEN 400 MG TABLET. PO PRN (08:50)
--- NOTE | 2021-05-19 10:11 | PDOC ---
[employer] PROGRESS NOTE Date of Service DOS: DATE: 05/19/21 TIME: 10:09 Chief Complaint Chief Complaint Urinary retention secondary to fecal impaction History of Present Illness History of Present Illness 05/19 Patient seen and examined at bedside Had BM last night and is feeling much better now Has been able to void bladder as well Chart reviewed Discussed w RN and case management Vitals/I&O Vitals/I&O: Vital Signs Date Time Temp Pulse Resp B/P (MAP) Pulse Ox O2 Delivery O2 Flow Rate FiO2 05/19/21 07:00 98.5 92 18 112/82 (92) 98 Room Air 98.5 I & O 05/18/21 05/18/21 05/19/21 15:00 23:00 07:00 Intake Total 0 ml 120 ml Balance 0 ml 120 ml Assessment and Plan Assessmemt and Plan Problems Medical Problems: (1) Fecal impaction in rectum Status: Acute (2) Urinary retention Status: Acute Assessment Fecal impaction with secondary urinary retention. Plan D/c home Dulcolax suppository if constipation continues Encourage fluids Continue home meds Deep venous thrombosis prophylaxis Full code Comment Review of Relevant I have reviewed the following items melinda (where applicable) has been applied. Medications: Current Medications Medications (Trade) Dose Ordered Sig/Carla Route PRN Reason Start Time Stop Time Status Last Admin Dose Admin Ibuprofen (Motrin) 400 mg PRN Q6HRS PRN PO INFLAMMATION 05/18/21 12:30 05/19/21 08:50 Justifications for Admission Other Justification ANGELITA NAZARIO III DO May 19, 2021 10:11
--- NOTE | 2021-05-19 11:07 | NUR ---
PT DISCHARGING HOME WITH SELF CARE. DISCHARGE INSTRUCTIONS AND PRESCRIPTIONS DISCUSSED. PT VERBALIZED UNDERSTANDING. IV REMOVED. PT AMBULATED TO ED ENTRANCE WITH SHIRLEY
--- NOTE | 2021-05-19 12:42 | NUR ---
SW following. Discussed with RN, pt discharged home with self care. RN advised no SW needs.
== END 2021-05-19 11:12 | disposition home or self-care (01) ==
LOC: ER 21:29 → INTOOBSV 05-18 05:30 → 4 NORTH 05-18 05:30
PROVIDERS: ADMIT Internal Medicine; ATTEND Internal Medicine
DX: K56.41 Fecal impaction (principal); R33.9 Retention of urine, unspecified; M19.90 Unspecified osteoarthritis, unspecified site; J30.9 Allergic rhinitis, unspecified; Z79.899 Other long term (current) drug therapy
CPT/HCPCS: 36415; 74177; 80053; 81001; 81025; 84702; 85025; 87086; 96374; 96376; 99285; G0378; J3010; Q9967; G0379